=== PATIENT | male | born 1985 | race Caucasian/White ===

== ENCOUNTER 2017-03-15 11:24 | Day surgery (SDC) | payer OTHER ==
[2017-03-10 12:35] VITALS: BMI 46.0
[2017-03-15] MEDS ORDERED: MIDAZOLAM HCL 2 MG/2 ML SINGLE DOSE VIAL ONE ×4 (12:13→13:59)
[2017-03-15] MEDS ORDERED: DEXAMETHASONE SOD PHOSPHATE/PF 10 MG/ML SDV ONE (12:13)
[2017-03-15] MEDS ORDERED: oxyCODONE HCL 10 MG SUSTAINED ACTING TABLET PO STA (12:16)
--- NOTE | 2017-03-15 13:02 | HP ---
History & Physical Update - History History: No Change - Physical Physical: No Change - Assessment Assessment: No Change - Plan Plan: No Change
--- NOTE | 2017-03-15 13:03 | OP ---
Operative Note - Note: Operative Date: 03/15/17 Pre-Operative Diagnosis: L5/S1 spinal stenosis with radiculopathy Operation: L5/S1 bilateral laminectomy Post-Operative Diagnosis: Same as Pre-op Surgeon: Jack Boyer Intelligence Specialist: Wilfrido Conteh Anesthesiologist/HUMAN RESOURCES CLERK: Victor M Maria ([facility]) Anesthesia: Spinal Estimated Blood Loss (mls): 10 Fluid Volume Replaced (mls): 1,100 Operative Report Dictated: Yes
--- NOTE | 2017-03-15 13:04 | SURG ---
Surgery Lace Mender Note Lace Mender: Wilfrido Conteh PA-C Date of Service: 03/15/17 Diagnosis: L5/S1 spinal stenosis with radiculopathy Procedure: L5/S1 bilateral laminectomy I was present for the entirety of the operative procedure. For further detail, please refer to operative report. Visit type - Case Type Case Type: Scheduled Admission - New patient This patient is new to me today: Yes Date on this admission: 03/15/17
[2017-03-15] MEDS ORDERED: methylPREDNISolone ACET (DEPO) 40 MG/1 ML VIAL ONE (13:06)
[2017-03-15] MEDS ORDERED: THROMBIN (BOVINE) 5,000 UNIT VIAL TP ONE (13:06)
[2017-03-15] MEDS ORDERED: LIDOCAINE 1%/EPI 1:100000 (20 ML MULTI DOSE VIAL) ONE (13:07)
[2017-03-15] MEDS ORDERED: GUM MASTIC/STORAX/MSAL/ALCOHOL 1 DRP DROPSBTL MC ONE (13:07)
[2017-03-15] MEDS ORDERED: oxyCODONE HCL 5 MG TABLET PO PRN (13:49)
[2017-03-15] MEDS ORDERED: ONDANSETRON 4 MG/2 ML VIAL IVPUSH PRN (13:49)
[2017-03-15] MEDS ORDERED: LACTATED RINGERS SOLUTION 1,000 ML IV SCH (14:00)
[2017-03-15] MEDS ORDERED: oxyCODONE HCL 5 MG TABLET ONE (17:28)
[2017-03-15 18:24] VITALS: BP 140/77; PULSE 95; TEMP 98.1
--- NOTE | 2017-03-16 08:01 | OP ---
DATE OF OPERATION: 03/15/2017 PREOPERATIVE DIAGNOSIS: Spinal stenosis, L3-L4, L4-L5. POSTOPERATIVE DIAGNOSIS: Spinal stenosis, L3-L4, L4-L5. PROCEDURE PERFORMED: Laminectomy at L3-L4, L4-L5. SURGEON: Jack Boyer MD [employer] BAND DIRECTOR: ROGERIO Ruiz ESTIMATED BLOOD LOSS: 50 mL. INTRAVENOUS FLUID: Per Anesthesia. COMPLICATIONS: None. DISPOSITION: Patient brought to the PACU in stable condition. ANESTHESIA: Spinal/TLIP. INDICATIONS FOR SURGERY: The patient is a 31-year-old gentleman female who has been suffering from pain from his back down his leg. X-rays and MRI were completed which showed spinal stenosis at L3-L4 and L4-L5. He had gone through an exhaustive course of treatment for this which included medications, physical therapy, as well as injections. Unfortunately, his pain continued to persist despite all this. At this point, risks, benefits, and alternatives were discussed, and the patient consented to surgery. OPERATIVE NOTE: Patient was brought to the operating room by the Anesthesia staff. After appropriate patient identification was performed, spinal anesthesia was given devonte with TLIP. He was placed prone onto the Jose Luis frame with all areas of bony prominences well padded. At this time, 2 needles were placed into his back to jacky off the L3 and L5 segments. An x-ray was taken to confirm this was correct. The needle was removed, and 10 mL of lidocaine with epinephrine was injected into his back at this time. His back was prepped and draped in a sterile manner. At this point, a time-out was completed. An incision was made from the top of L3 down to the bottom of L5. Dissection was carried down to the fascia. The fascia was split open at this time. Appropriate retractor was then placed in. A spinal needle was placed onto the L3 lamina. An x-ray was taken to confirm this was correct at the L3-L4 level. The needle was removed, and the microscope was brought in. At this point, the interspinous ligament at L3-L4 and L4-L5 was removed. The spinous process at L4 was removed. A bur was used to remove the lamina. Complete decompression was performed such that by the end of the procedure, the L4 and L5 nerve roots appeared to be well decompressed. All bleeding was well controlled at this time. Steroids were placed over the nerve root. Floseal was placed over that. The fascia was closed with a No. 1 Vicryl suture. The subcutaneous tissues were closed with 2-0 Vicryl suture. Skin was closed with 3-0 Monocryl suture. Dermabond was applied. Steri-Strips were applied, and sterile dressings applied. Patient was placed supine on the OR bed, extubated in the OR, and brought to the PACU in stable condition. Angelina MORENO/[id number] MTDD
== END 2017-03-15 18:20 | disposition home or self-care (01) ==
LOC: FASU 11:24
PROVIDERS: ATTEND Orthopaedic Surgery Orthopaedic Surgery of the Spine
PROC: 01NB0ZZ Release Lumbar Nerve, Open Approach (ICD-10-PCS; principal; 2017-03-15 13:52)
DX: M48.061 Spinal stenosis, lumbar region without neurogenic claudication (principal)
CPT/HCPCS: 72100-TC; 94760

== ENCOUNTER 2017-04-04 12:15 | Inpatient (IN) | payer OTHER ==
[2017-04-04] MEDS ORDERED: ACETAMINOPHEN 325 MG TABLET (FP) PO PRN (12:42)
--- NOTE | 2017-04-04 13:09 | HP ---
CHIEF COMPLAINT: headaches PCP: Dr. Boyer HISTORY OF PRESENT ILLNESS: Pt with headaches for 5 days. He has had a laminectomy on 03/15/17 at [facility] with admitting physician Dr. boyer. Now transferred here with acute onset of headaches. Recent Travel: PAST MEDICAL HISTORY: HTN PAST SURGICAL HISTORY: laminectomy 03/15/17 Social History: Smoking:neg Alcohol:neg Drugs: marijuana Family History: Allergies No Known Allergies Allergy (Verified 03/10/17 12:15) HOME MEDICATIONS: Home Medications Medication Instructions Recorded Hydrocodone/Acetaminophen [Vicodin 1 each PO Q6H PRN #10 tablet MDD 4 03/15/17 5-300 mg Tablet] Lisinopril/Hydrochlorothiazide 1 each PO DAILY 03/15/17 [Lisinopril-Hctz 20-25 mg Tab] Tramadol HCl 50 mg PO Q6H #20 tablet MDD 4 03/15/17 REVIEW OF SYSTEMS CONSTITUTIONAL: Absent: fever, chills, diaphoresis, generalized weakness, malaise, loss of appetite, weight change CARDIOVASCULAR: Absent: chest pain, syncope, palpitations, irregular heart rate, lightheadedness , peripheral edema RESPIRATORY: Absent: cough, shortness of breath, dyspnea with exertion, orthopnea, wheezing, stridor, hemoptysis GASTROINTESTINAL: Absent: abdominal pain, abdominal distension, nausea, vomiting, diarrhea, constipation, melena, hematochezia GENITOURINARY: Absent: dysuria, frequency, urgency, hesitancy, hematuria, flank pain, genital pain MUSCULOSKELETAL: Absent: myalgia, arthralgia, joint swelling, back pain, neck pain, SKIN: Absent: rash, itching, pallor HEMATOLOGIC/IMMUNOLOGIC: Absent: easy bleeding, easy bruising, lymphadenopathy, frequent infections ENDOCRINE: Absent: unexplained weight gain, unexplained weight loss, heat intolerance, cold intolerance NEUROLOGIC: Absent: +headache, focal weakness or paresthesias, dizziness, unsteady gait, seizure, mental status changes, bladder or bowel incontinence PSYCHIATRIC: Absent: anxiety, depression, suicidal or homicidal ideation, hallucinations. PHYSICAL EXAMINATION GENERAL: Awake, alert, and fully oriented, in no acute distress. HEAD: Normal with no signs of trauma. LUNGS: Breath sounds equal, clear to auscultation bilaterally. No wheezes, and no crackles. No accessory muscle use. HEART: Regular rate and rhythm, normal S1 and S2 without murmur, rub or gallop. ABDOMEN: Soft, nontender, not distended, normoactive bowel sounds, no guarding, no rebound, no masses. No hepatomegaly or splenomegaly. MUSCULOSKELETAL: Normal range of motion at all joints. No bony deformities or tenderness. No CVA tenderness. UPPER EXTREMITIES: 2+ pulses, warm, well-perfused. No cyanosis. No clubbing. No peripheral edema. LOWER EXTREMITIES: 2+ pulses, warm, well-perfused. No calf tenderness. No peripheral edema. NEUROLOGICAL: Cranial nerves II-XII intact. Normal speech. Pt on bedrest with HOB flat due to ?spinal headache PSYCHIATRIC: Cooperative. Good eye contact. Appropriate mood and affect. SKIN: Warm, dry, normal turgor, no rashes or lesions noted, normal capillary refill. ASSESSMENT/PLAN: This 31 yr old male with c/o acute 5 day headache s/p laminectomy on 03/15/[address] [facility] to continue care from J[facility] Espinosa. Pt intially went to [facility] for headaches and after a few days of treatment pt contacted Dr. Boyer and he felt it would be best to transfer over care to [facility] and possible surgical intervention. He now presents via EMS with his family present Back pain -was taking vicoden at home but no relief from headache -no wound, no redness or erythema -no numbness, tingling or parathesia to LE Headache: -treat with fiorocet and tylenol -IVF -lie flat in bed HTN -continue meds as lisinopril and HCTZ as home meds. Problem List - Problem (1) Headache after spinal puncture Code(s): G97.1 - OTHER REACTION TO SPINAL AND LUMBAR PUNCTURE (2) Hypertension Code(s): I10 - ESSENTIAL (PRIMARY) HYPERTENSION Visit type - Emergency Visit Emergency Visit: Yes ED Registration Date: 04/04/17 Care time: The patient presented to the Emergency Department on the above date and was hospitalized for further evaluation of their emergent condition. - New Patient This patient is new to me today: Yes Date on this admission: 04/04/17 - Critical Care Critical Care patient: No
[2017-04-04 13:10] VITALS: BMI 46.7
[2017-04-04] MEDS ORDERED: HYDROCHLOROTHIAZIDE 25 MG TABLET (FP) PO ONE (13:13)
[2017-04-04] MEDS ORDERED: LISINOPRIL 20 MG TABLET (FP) PO ONE (13:13)
[2017-04-04] MEDS: SODIUM CHLORIDE 1,000 ML IV SCH (13:56)
[2017-04-04 14:18] LABS: HEMOGLOBIN 12.8 GM/dl (11.7-16.9); MCH 29.1 pg (25.7-33.7); MCHC 33.6 g/dl (32.0-35.9); MEAN CELL VOLUME 86.6 fl (80-96); MEAN PLT VOLUME 9.2 fl (7.5-11.1); PLATELET COUNT 239 K/MM3 (134-434); RDW 12.6 % (11.9-15.9); WHITE BLOOD COUNT 6.7 K/mm3 (4.0-10.8)
[2017-04-04 14:38] LABS: ANION GAP 7 (8-16); BLOOD UREA NITROGEN 7 mg/dl (7-18); CALCIUM 8.9 mg/dl (8.4-10.2); CHLORIDE 105 mmol/L (98-107); CO2 25 mmol/L (22-28); CREATININE 0.7 mg/dl (0.6-1.3); GLUCOSE,RANDOM 132 mg/dl (74-106); POTASSIUM 3.6 mmol/L (3.5-5.1); SODIUM 137 mmol/L (136-145)
[2017-04-04 14:41] LABS: ACTIVATED PTT 31.7 SECONDS (24.0-38.9)
[2017-04-04 14:45] LABS: INR 1.23 (0.82-1.09); PROTHROMBIN TIME (PATIENT) 13.7 SEC (10.2-13.0)
[2017-04-04 16:44] LABS: URINE APPEARANCE Clear; URINE BILIRUBIN Negative (NEGATIVE); URINE GLUCOSE (UA) Negative (NEGATIVE); URINE KETONE Negative (NEGATIVE); URINE LEUK ESTERASE Negative (NEGATIVE); URINE NITRITE Negative (NEGATIVE); URINE PROTEIN Negative (NEGATIVE)
[2017-04-04 16:48] LABS: URINE BLOOD Trace-intact (NEGATIVE); URINE COLOR YELLOW
[2017-04-04 16:53] LABS: AMORP URATES FEW /hpf (NONE SEEN); EPI CELLS FEW /HPF; URINE BACTERIA FEW /hpf (NEGATIVE)
[2017-04-04] MEDS: HEPARIN NA (PORCINE) 5,000 UNITS/ML 1ML VIAL SQ SCH (17:56)
[2017-04-04] MEDS: ACETAMINOPHEN/CAFFEINE/BUTALBITAL 1 TAB PO PRN (19:45)
[2017-04-04] MEDS: ONDANSETRON 4 MG/2 ML VIAL IVPUSH PRN (23:51)
[2017-04-05] MEDS: HEPARIN NA (PORCINE) 5,000 UNITS/ML 1ML VIAL SQ SCH ×2 (01:15→10:00)
[2017-04-05] MEDS ORDERED: METOCLOPRAMIDE HCL INJECTION 10 MG/2 ML VIAL IVPUSH ONE (02:33)
--- NOTE | 2017-04-05 06:25 | PN ---
Physical Exam: SUBJECTIVE: Patient seen and examined. Still has severe headaches and nausea despite Fioricet, Zofran, Reglan. No weakness, no incontinence. No fevers/ chills. OBJECTIVE: Vital Signs Period Temp Pulse Resp BP Sys/Cornelius Pulse Ox Last 24 Hr 98.1 F-99.4 F 58-77 18-20 120-159/66-83 98-99 GENERAL: The patient is awake, alert, and fully oriented, in no acute distress. HEAD: Normal with no signs of trauma. EYES: PERRL, extraocular movements intact, sclera anicteric, conjunctiva clear. No ptosis. ENT: Ears normal, nares patent, oropharynx clear without exudates, moist mucous membranes. NECK: Trachea midline, full range of motion, supple. LUNGS: Breath sounds equal, clear to auscultation bilaterally, no wheezes, no crackles, no accessory muscle use. HEART: Regular rate and rhythm, S1, S2 without murmur, rub or gallop. ABDOMEN: Soft, nontender, nondistended, normoactive bowel sounds, no guarding, no rebound, no hepatosplenomegaly, no masses. EXTREMITIES: 2+ pulses, warm, well-perfused, no edema. NEUROLOGICAL: Cranial nerves II through XII grossly intact. Normal speech, gait not observed. 5/5 upper and lower extremity strength bilaterally. PSYCH: Normal mood, normal affect. SKIN: Warm, dry, normal turgor, no rashes or lesions noted. Laboratory Results - last 24 hr 04/04/17 04/04/17 04/04/17 13:50 13:50 13:50 WBC 6.7 RBC 4.40 Hgb 12.8 Hct 38.0 MCV 86.6 MCH 29.1 MCHC 33.6 RDW 12.6 Plt Count 239 MPV 9.2 PT with INR 13.7 H INR 1.23 H PTT (Actin FS) 31.7 Sodium 137 Potassium 3.6 Chloride 105 Carbon Dioxide 25 Anion Gap 7 L BUN 7 Creatinine 0.7 Random Glucose 132 H Calcium 8.9 Urine Color Urine Appearance Urine pH Ur Specific [place] Urine Protein Urine Glucose (UA) Urine Ketones Urine Blood Urine Nitrite Urine Bilirubin Urine Urobilinogen Ur Leukocyte Esterase Urine RBC Urine WBC Ur Epithelial Cells Amorphous Urates Urine Bacteria Blood Type Antibody Screen 04/04/17 04/04/17 04/04/17 13:50 13:58 16:35 WBC RBC Hgb Hct MCV MCH MCHC RDW Plt Count MPV PT with INR INR PTT (Actin FS) Sodium Potassium Chloride Carbon Dioxide Anion Gap BUN Creatinine Random Glucose Calcium Urine Color Yellow Urine Appearance Clear Urine pH 5.0 Ur Specific [place] 1.015 Urine Protein Negative Urine Glucose (UA) Negative Urine Ketones Negative Urine Blood Trace-intact H Urine Nitrite Negative Urine Bilirubin Negative Urine Urobilinogen 1.0 Ur Leukocyte Esterase Negative Urine RBC 5-10 Urine WBC 2-5 Ur Epithelial Cells Few Amorphous Urates Few Urine Bacteria Few Blood Type A POSITIVE A POSITIVE Antibody Screen Negative Active Medications Generic Name Dose Route Start Last Admin Trade Name Freq PRN Reason Stop Dose Admin Acetaminophen 650 mg 04/04/17 12:42 Tylenol - PO Q4H PRN PAIN Acetaminophen/Butalbital/Caffeine 1 tablet 04/04/17 13:12 04/04/17 19:45 Fioricet - PO 1 tablet Q6H PRN Administration HEADACHE Heparin Sodium (Porcine) 5,000 unit 04/04/17 18:00 04/05/17 01:15 Heparin - SQ Not Given Q8H-IV CHACHA Sodium Chloride 1,000 mls @ 100 mls/hr 04/04/17 12:45 04/04/17 13:56 Normal Saline - IV 100 mls/hr ASDIR CHACHA Administration Ondansetron HCl 4 mg 04/04/17 23:44 04/04/17 23:51 Zofran Injection IVPUSH 4 mg Q6H PRN Administration NAUSEA ASSESSMENT/PLAN: 31 year old male POD #21 s/p lumbar laminectomy with intractable headache and vomiting, likely secondary to dural tear. 1. Headache -Persistent despite Fioricet, Zofran, Reglan -Trial of Ofirmev 1g, Zofran 8mg IVPB now -For OR today, NPO, hold heparin 2. HTN -Continue home Lisinopril, HCTZ DISPO: Requires inpatient services. Visit type - Emergency Visit Emergency Visit: Yes ED Registration Date: 04/04/17 Care time: The patient presented to the Emergency Department on the above date and was hospitalized for further evaluation of their emergent condition. - New Patient This patient is new to me today: Yes Date on this admission: 04/05/17 - Critical Care Critical Care patient: No
[2017-04-05] MEDS ORDERED: ACETAMINOPHEN 1000 MG/100 ML VIAL (NON FORMULARY) IVPB ONE (06:26)
[2017-04-05] MEDS ORDERED: ONDANSETRON 4 MG/2 ML VIAL IVPB ONE (06:27)
[2017-04-05] MEDS: LISINOPRIL 20 MG TABLET (FP) PO SCH (08:24)
[2017-04-05] MEDS: HYDROCHLOROTHIAZIDE 25 MG TABLET (FP) PO SCH (08:24)
[2017-04-05 09:16] LABS: HEMATOCRIT 36.3 % (35.4-49); HEMOGLOBIN 12.5 GM/dl (11.7-16.9); MCH 29.9 pg (25.7-33.7); MCHC 34.5 g/dl (32.0-35.9); MEAN CELL VOLUME 86.8 fl (80-96); MEAN PLT VOLUME 9.8 fl (7.5-11.1); PLATELET COUNT 228 K/MM3 (134-434); RBC 4.19 M/mm3 (4.00-5.60); RDW 12.1 % (11.9-15.9); WHITE BLOOD COUNT 8.1 K/mm3 (4.0-10.8)
[2017-04-05] MEDS ORDERED: LISINOPRIL 10 MG TABLET (FP) PO SCH (10:00)
[2017-04-05 10:11] LABS: ANION GAP 10 (8-16); BLOOD UREA NITROGEN 6 mg/dl (7-18); CALCIUM 8.9 mg/dl (8.4-10.2); CHLORIDE 102 mmol/L (98-107); CO2 26 mmol/L (22-28); CREATININE 0.8 mg/dl (0.6-1.3); GLUCOSE,RANDOM 101 mg/dl (74-106); POTASSIUM 3.7 mmol/L (3.5-5.1); SODIUM 138 mmol/L (136-145)
[2017-04-05] MEDS: ACETAMINOPHEN/CAFFEINE/BUTALBITAL 1 TAB PO PRN (11:55)
[2017-04-05] MEDS: ONDANSETRON 4 MG/2 ML VIAL IVPUSH PRN (11:56)
[2017-04-05] MEDS ORDERED: LIDOCAINE 1%/EPI 1:100000 (20 ML MULTI DOSE VIAL) ONE (13:55)
[2017-04-05] MEDS ORDERED: THROMBIN (BOVINE) 5,000 UNIT VIAL TP ONE (13:55)
[2017-04-05] MEDS ORDERED: methylPREDNISolone ACET (DEPO) 40 MG/1 ML VIAL ONE (13:55)
[2017-04-05] MEDS ORDERED: ROCURONIUM BROMIDE 50 MG/5 ML VIAL ONE (14:44)
[2017-04-05] MEDS ORDERED: SUCCINYLCHOLINE CHLORIDE 200 MG/10 ML VIAL ONE (14:44)
[2017-04-05] MEDS ORDERED: PROPOFOL 20 ML ONE ×2 (14:44)
[2017-04-05] MEDS ORDERED: fentaNYL CITRATE 250 MCG/5 ML VIAL ONE (14:44)
[2017-04-05] MEDS ORDERED: MIDAZOLAM HCL 2 MG/2 ML SINGLE DOSE VIAL ONE (14:45)
[2017-04-05] MEDS ORDERED: ONDANSETRON 4 MG/2 ML VIAL ONE (16:31)
[2017-04-05] MEDS ORDERED: ceFAZolin SODIUM 1 GM VIAL ONE (16:31)
[2017-04-05] MEDS ORDERED: DEXAMETHASONE SOD PHOSPHATE 4 MG/1 ML VIAL ONE (16:31)
[2017-04-05] MEDS ORDERED: HYDROmorphone HCL/PF 1 MG/ML VIAL (FOR PYXIS CHARGING ONLY) ONE ×2 (16:32→16:58)
[2017-04-05] MEDS ORDERED: SODIUM CHLORIDE 1,000 ML IV SCH (17:25)
[2017-04-05] MEDS ORDERED: oxyCODONE HCL 5 MG TABLET PO PRN ×3 (17:27→17:32)
[2017-04-05] MEDS ORDERED: BUPIVACAINE HCL/PF 0.25% (2.5MG/ML) 10 ML VIAL IJ ONE (17:29)
[2017-04-05] MEDS ORDERED: CEFAZOLIN 1 GM/D5W 1 GM/50 ML BAG IVPB SCH (17:30)
[2017-04-05] MEDS ORDERED: HYDROmorphone HCL CARPU-JECT 2 MG/1 ML DISP.SYRIN IVPUSH PRN (17:32)
[2017-04-05] MEDS ORDERED: ONDANSETRON 4 MG/2 ML VIAL IVPUSH PRN (17:32)
[2017-04-05] MEDS ORDERED: PROMETHAZINE HCL 25 MG/1 ML VIAL IVPB PRN (17:32)
--- NOTE | 2017-04-05 17:34 | OP ---
Operative Note - Note: Operative Date: 04/05/17 Pre-Operative Diagnosis: dural tear Operation: wound exploration, repair of dural tear with duragen patch/duraseal Surgeon: Jack Boyer Greens Tier: Shy Hope Anesthesiologist/[employer]CHO[employer] COMBINATION TEACHER: Martha Dominguez Anesthesia: General Estimated Blood Loss (mls): 40 Fluid Volume Replaced (mls): 1,000 Operative Report Dictated: Yes
[2017-04-05] MEDS: DOCUSATE SODIUM 100 MG CAPSULE (FP) PO SCH (22:21)
[2017-04-05] MEDS: CEFAZOLIN 1 GM/D5W 1 GM/50 ML BAG IVPB SCH (22:34)
[2017-04-06] MEDS: HEPARIN NA (PORCINE) 5,000 UNITS/ML 1ML VIAL SQ SCH ×2 (02:04→07:42)
[2017-04-06] MEDS: CEFAZOLIN 1 GM/D5W 1 GM/50 ML BAG IVPB SCH ×2 (06:11→15:33)
[2017-04-06] MEDS: DOCUSATE SODIUM 100 MG CAPSULE (FP) PO SCH ×3 (06:11→21:34)
[2017-04-06] MEDS: oxyCODONE HCL 5 MG TABLET PO PRN ×3 (06:20→21:35)
[2017-04-06] MEDS: SODIUM CHLORIDE 1,000 ML IV SCH (07:42)
[2017-04-06] MEDS ORDERED: CYCLOBENZAPRINE HCL 5 MG TABLET PO PRN (07:47)
--- NOTE | 2017-04-06 07:49 | OP ---
DATE OF OPERATION: 04/05/2017 PREOPERATIVE DIAGNOSIS: Headaches and dural tear. POSTOPERATIVE DIAGNOSIS: Headaches and dural tear. PROCEDURE PERFORMED: Exploration of wound, repair of dural tear. SURGEON: Jack Boyer MD LAMINATION TECHNICIAN: ROGERIO Estrada ESTIMATED BLOOD LOSS: 50 mL. INTRAVENOUS FLUIDS: Per Anesthesia. ANESTHESIA: General. COMPLICATIONS: There were none. DISPOSITION: Patient brought to PACU in stable condition. INDICATION FOR SURGERY: The patient is a 31-year-old gentleman who was admitted who had . Two weeks after surgery he began to have headaches. He was admitted to an outside hospital. At the outside hospital an MRI was done which noted that he had a collection of fluid. Patient was noted to have headaches, and a provisional diagnosis of dural tear was made. Patient was transferred to [facility]. I evaluated the patient. Patient noted that when he stood up he began to have headaches. He denied any fevers. A new MRI was ordered, which confirmed that he had a collection of fluid. I had a lengthy discussion with the patient regarding this. We discussed the fact that he has fluid collection. It is unclear why he began to have symptoms 2 weeks after his surgery. I said the best course of treatment at this point is to do a direct exploration, determine if there is a dural tear, and repair it as possible. The patient understood the risks and benefits and alternatives and consented to his surgery. OPERATIVE NOTE: The patient was brought to the operating room by anesthesia staff. After appropriate patient identification was performed, general anesthesia was given. Patient was placed prone onto the Jose Luis frame with all areas of bony prominences well padded. His back warm, pink, and dry in a sterile manner. At this point a timeout was completed. His previous incision was opened up. At this point clear fluid was noted and was irrigated out. Multiple passes were made down to the dysuria and irrigation was noted. Microscope was brought in. On the lateral aspect of his dura close to the anterior part of the dura, a dural tear was noted. At that moment I decided that putting a suture in would have been too difficult. We made a decision to place a DuraGen patch over the dural tear as well as seal with DuraSeal. After doing this, multiple Valsalva maneuvers noted that there was no leakage. A tight fascial closure was done. Vicryl 2-0 was used to close the subcutaneous tissue. Skin was closed with 3-0 Monocryl sutures. Dermabond was applied and Steri-Strips were applied. A sterile dressing was applied. Patient was placed supine on the or bed, extubated in the OR and brought to the PACU in stable condition. Angelina MORENO/[id number]
[2017-04-06] MEDS ORDERED: SODIUM CHLORIDE 1,000 ML IV SCH (07:51)
[2017-04-06] MEDS ORDERED: CYCLOBENZAPRINE HCL 10 MG TABLET (FP) PO PRN (07:57)
--- NOTE | 2017-04-06 08:11 | SURG ---
Surgery Medical I D Sales Note Medical I D Sales: Shy Hope PA-C Date of Service: 04/05/17 Diagnosis: dural tear Procedure: wound exploration, repair of dural tear with duragen patch/duraseal I was present for the entirety of the operative procedure. For further detail, please refer to operative report. Visit type - Case Type Case Type: Scheduled Admission - Emergency Emergency Visit: No - New patient This patient is new to me today: Yes Date on this admission: 04/05/17
--- NOTE | 2017-04-06 08:32 | PN ---
Progress Note (short form) - Note Progress Note: PT states that his headache is a 1 to 2, he has been on bed rest with sitting upright to urinate. His headache hasn't increased with this activity. Today, I assisted him in sitting on the edge of the bed and he felt fine. Vital Signs Period Temp Pulse Resp BP Sys/Cornelius Pulse Ox Last 24 Hr 97.6 F-98.8 F 56-86 14-19 124-157/55-77 97-100 GEN: A&0x3, NAD Back: dressing c/d/i Neuro: dorsi/plantar flexion EHL 5/5 b/l. Fiberglass Product Tester strength equal b/l LE: no calf tenderness or swelling noted, b/l Scds in place and working CBC, BMP 04/05/17 07:00 04/05/17 07:00 A/P: 31 yo male s/p Laminectomy L3-5 now s/p wound exploration and repair of dural tear with durgen patch/duraseal Advanced diet this am and may discontinue IV fliuds later today Added flerxil for pain relief, when pain better controlled plan for oob and ambulate with PT/nursing staff Continue to monitor headache symptoms when oob/ambulating
[2017-04-06 08:52] LABS: ALBUMIN 3.3 g/dl (3.5-5.0); ALK PHOS 50 U/L (32-92); ANION GAP 7 (8-16); BASO % 0.2 % (0-2.0); BILIRUBIN,TOTAL 0.7 mg/dl (0.2-1.0); BLOOD UREA NITROGEN 8 mg/dl (7-18); CALCIUM 8.6 mg/dl (8.4-10.2); CHLORIDE 100 mmol/L (98-107); CO2 27 mmol/L (22-28); CREATININE 0.9 mg/dl (0.6-1.3); EOS % 0.4 % (0-4.5); GLUCOSE,RANDOM 93 mg/dl (74-106); HEMATOCRIT 36.2 % (35.4-49); HEMOGLOBIN 12.3 GM/dl (11.7-16.9); LYMPH % 17.6 % (8-40); MCH 29.1 pg (25.7-33.7); MCHC 34.1 g/dl (32.0-35.9); MEAN CELL VOLUME 85.1 fl (80-96); MEAN PLT VOLUME 9.4 fl (7.5-11.1); MONO % 5.7 % (3.8-10.2); NEUT % 76.1 % (42.8-82.8); POTASSIUM 3.7 mmol/L (3.5-5.1); RBC 4.25 M/mm3 (4.00-5.60); RDW 12.4 % (11.9-15.9); SGOT/AST 19 U/L (10-42); SGPT/ALT 34 U/L (10-40); SODIUM 134 mmol/L (136-145); TOT PROT 5.8 g/dl (6.4-8.3); WHITE BLOOD COUNT 9.3 K/mm3 (4.0-10.8)
[2017-04-06] MEDS: HYDROCHLOROTHIAZIDE 25 MG TABLET (FP) PO SCH (09:38)
[2017-04-06] MEDS: LISINOPRIL 20 MG TABLET (FP) PO SCH (09:38)
[2017-04-06 09:39] LABS: PLATELET COUNT 238 K/MM3 (134-434)
--- NOTE | 2017-04-06 09:42 | PN ---
Physical Exam: SUBJECTIVE: Patient seen and examined, patient is sitting up in bed, reports headache is 4/10 upon position changes, does report headache is much improved. OBJECTIVE: patient is a 31 year old male s/p lumbar laminectomy (pod #22) admitted from the emergency department for dural tear repair, 04/05/17. Vital Signs Period Temp Pulse Resp BP Sys/Cornelius Pulse Ox Last 24 Hr 97.6 F-98.8 F 56-89 14-19 124-157/55-77 97-100 GENERAL: The patient is awake, alert, and fully oriented, in no acute distress. HEAD: Normal with no signs of trauma. EYES: PERRL, extraocular movements intact, sclera anicteric, conjunctiva clear. No ptosis. ENT: Ears normal, nares patent, oropharynx clear without exudates, moist mucous membranes. NECK: Trachea midline, full range of motion, supple. LUNGS: Breath sounds equal, clear to auscultation bilaterally, no wheezes, no crackles, no accessory muscle use. HEART: Regular rate and rhythm, S1, S2 without murmur, rub or gallop. ABDOMEN: Soft, nontender, nondistended, normoactive bowel sounds, no guarding, no rebound, no hepatosplenomegaly, no masses. EXTREMITIES: 2+ pulses, warm, well-perfused, no edema. NEUROLOGICAL: Cranial nerves II through XII grossly intact. Normal speech, gait not observed. PSYCH: Normal mood, normal affect. SKIN: sacral surgical site, dressing clean and dry and intact. Warm, dry, normal turgor, no rashes or lesions noted Laboratory Results - last 24 hr 04/05/17 04/06/17 04/06/17 07:00 08:00 08:00 WBC 9.3 RBC 4.25 Hgb 12.3 Hct 36.2 MCV 85.1 MCH 29.1 MCHC 34.1 RDW 12.4 Plt Count 238 MPV 9.4 Neutrophils % 76.1 Lymphocytes % 17.6 Monocytes % 5.7 Eosinophils % 0.4 Basophils % 0.2 Sodium 138 134 L Potassium 3.7 3.7 Chloride 102 100 Carbon Dioxide 26 27 Anion Gap 10 7 L BUN 6 L 8 D Creatinine 0.8 0.9 Creat Clearance w eGFR > 60 Random Glucose 101 D 93 Calcium 8.9 8.6 Total Bilirubin 0.7 AST 19 ALT 34 Alkaline Phosphatase 50 Total Protein 5.8 L Albumin 3.3 L Active Medications Generic Name Dose Route Start Last Admin Trade Name Freq PRN Reason Stop Dose Admin Acetaminophen 650 mg 04/04/17 12:42 04/06/17 03:23 Tylenol - PO 650 mg Q4H PRN Administration PAIN Acetaminophen/Butalbital/Caffeine 1 tablet 04/04/17 13:12 04/05/17 11:55 Fioricet - PO 1 tablet Q6H PRN Administration HEADACHE Cyclobenzaprine HCl 10 mg 04/06/17 07:57 04/06/17 08:09 Flexeril - PO 10 mg BID PRN Administration BACK PAIN Docusate Sodium 100 mg 04/05/17 22:00 04/06/17 06:11 Colace - PO 100 mg TID CHACHA Administration Hydrochlorothiazide 25 mg 04/05/17 08:30 04/05/17 08:24 Hctz - PO 25 mg DAILY CHACHA Administration Cefazolin Sodium 1 gm in 50 mls @ 100 mls/hr 04/05/17 23:00 04/06/17 06:11 Ancef 1 Gm Premixed Ivpb - IVPB 04/06/17 22:59 100 mls/hr Q8H CHACHA Administration Sodium Chloride 1,000 mls @ 75 mls/hr 04/06/17 07:51 Normal Saline - IV 04/06/17 12:00 ASDIR CHACHA Lisinopril 20 mg 04/05/17 08:30 04/05/17 08:24 Prinivil PO 20 mg DAILY CHACHA Administration Ondansetron HCl 4 mg 04/04/17 23:44 04/05/17 11:56 Zofran Injection IVPUSH 4 mg Q6H PRN Administration NAUSEA Oxycodone HCl 5 mg 04/05/17 17:27 04/05/17 22:34 Roxicodone - PO 5 mg Q4H PRN Administration PAIN LEVEL 1-5 Oxycodone HCl 10 mg 04/05/17 17:27 04/06/17 06:20 Roxicodone - PO 10 mg Q4H PRN Administration PAIN LEVEL 6-10 IMAGING lumar spine mri: s/p l4 laminectomy with large fluid collection, posteriorly extending form the posterior epidural space. ASSESSMENT/PLAN: 1. MS S/p dural tear repair, POD #1 - physical therapy evaluation - continue prn pain medication - Dr Boyer following 2. cardiovascular HTN -Continue home Lisinopril, HCTZ DISPO: Requires inpatient services.
--- NOTE | 2017-04-06 10:52 | PN ---
Progress Note, Physician Chief Complaint: s/p dural tear repair under general anesthesia. History of Present Illness: post op day one - Current Medication List Current Medications: Active Medications Acetaminophen (Tylenol -) 650 mg PO Q4H PRN PRN Reason: PAIN Last Admin: 04/06/17 03:23 Dose: 650 mg Acetaminophen/Butalbital/Caffeine (Fioricet -) 1 tablet PO Q6H PRN PRN Reason: HEADACHE Last Admin: 04/05/17 11:55 Dose: 1 tablet Cyclobenzaprine HCl (Flexeril -) 10 mg PO BID PRN PRN Reason: BACK PAIN Last Admin: 04/06/17 08:09 Dose: 10 mg Docusate Sodium (Colace -) 100 mg PO TID [facility] Last Admin: 04/06/17 06:11 Dose: 100 mg Hydrochlorothiazide (Hctz -) 25 mg PO DAILY [facility] Last Admin: 04/06/17 09:38 Dose: 25 mg Cefazolin Sodium (Ancef 1 Gm Premixed Ivpb -) 1 gm in 50 mls @ 100 mls/hr IVPB Q8H [facility] Stop: 04/06/17 22:59 Last Admin: 04/06/17 06:11 Dose: 100 mls/hr Sodium Chloride (Normal Saline -) 1,000 mls @ 75 mls/hr IV ASDIR [facility] Stop: 04/06/17 12:00 Last Admin: 04/06/17 08:09 Dose: 75 mls/hr Lisinopril (Prinivil) 20 mg PO DAILY [facility] Last Admin: 04/06/17 09:38 Dose: 20 mg Ondansetron HCl (Zofran Injection) 4 mg IVPUSH Q6H PRN PRN Reason: NAUSEA Last Admin: 04/05/17 11:56 Dose: 4 mg Oxycodone HCl (Roxicodone -) 5 mg PO Q4H PRN PRN Reason: PAIN LEVEL 1-5 Last Admin: 04/05/17 22:34 Dose: 5 mg Oxycodone HCl (Roxicodone -) 10 mg PO Q4H PRN PRN Reason: PAIN LEVEL 6-10 Last Admin: 04/06/17 06:20 Dose: 10 mg - Objective Vital Signs: Vital Signs Temperature 98.8 F 04/06/17 09:35 Pulse Rate 89 04/06/17 09:35 Respiratory Rate 18 02/06/18 09:35 Blood Pressure 125/59 04/06/17 09:35 O2 Sat by Pulse Oximetry (%) 100 04/06/17 06:16 Constitutional: Yes: Well Nourished Cardiovascular: Yes: WNL Respiratory: Yes: WNL Gastrointestinal: Yes: WNL Labs: CBC, BMP 04/06/17 08:00 04/06/17 08:00 INR, PTT INR 1.23 (0.82-1.09) H 04/04/17 13:50 Assessment/Plan No adverse anesthetic reaction, no nausea or vomiting, minor throat pain no intervention necessary at this time. dept of anesthesia will sign off care.
[2017-04-06 22:44] VITALS: TEMP 98.6
[2017-04-07] MEDS: DOCUSATE SODIUM 100 MG CAPSULE (FP) PO SCH (06:23)
[2017-04-07 06:50] VITALS: BP 162/80; PULSE 72
[2017-04-07] MEDS: LISINOPRIL 20 MG TABLET (FP) PO SCH (09:24)
[2017-04-07] MEDS: HYDROCHLOROTHIAZIDE 25 MG TABLET (FP) PO SCH (09:24)
--- NOTE | 2017-04-07 09:42 | PN ---
Progress Note (short form) - Note Progress Note: Pt with no increase in headaches, at a 1 out of 10. OOB and ambulating yesterday on his own and with physical therapy. Vital Signs Period Temp Pulse Resp BP Sys/Cornelius Pulse Ox Last 24 Hr 98.6 F-98.8 F 65-87 18-20 120-162/57-81 97-99 Back: Dressing changed. Inc c/d/i with steristrips minimal clear fluid on dressing in 3 places size of a dime. No fullness or erythema. CBC, BMP 04/06/17 08:00 04/06/17 08:00 A/p: 31 yo male repair of dural tear with duragenpatch/duraseal after laminectomy Headache symptoms improved overall and remains stable D/w Dr. Boyer and plan for discharge to home today with follow-up this wednesday in the office Pain medications viodin/flexeril to go home Stool softners as needed for constipation OOB and ambulate
--- NOTE | 2017-04-07 12:21 | DS ---
Physical Exam: SUBJECTIVE: Patient seen and examined, reports feeling well ambulatory at bedside, denies any headache. OBJECTIVE: Pt with headaches for 5 days. He has had a laminectomy on 03/15/17 at [facility] with admitting physician Dr. boyer. Now transferred here with acute onset of headaches. Vital Signs Period Temp Pulse Resp BP Sys/Cornelius Pulse Ox Last 24 Hr 98.6 F-98.8 F 65-87 18-20 120-162/57-81 97-99 PHYSICAL EXAM . GENERAL: The patient is awake, alert, and fully oriented, in no acute distress. HEAD: Normal with no signs of trauma. EYES: PERRL, extraocular movements intact, sclera anicteric, conjunctiva clear. No ptosis. ENT: Ears normal, nares patent, oropharynx clear without exudates, moist mucous membranes. NECK: Trachea midline, full range of motion, supple. LUNGS: Breath sounds equal, clear to auscultation bilaterally, no wheezes, no crackles, no accessory muscle use. HEART: Regular rate and rhythm, S1, S2 without murmur, rub or gallop. ABDOMEN: Soft, nontender, nondistended, normoactive bowel sounds, no guarding, no rebound, no hepatosplenomegaly, no masses. EXTREMITIES: 2+ pulses, warm, well-perfused, no edema. NEUROLOGICAL: Cranial nerves II through XII grossly intact. Normal speech, gait not observed. PSYCH: Normal mood, normal affect. SKIN: sacral surgical site, dressing clean and dry and intact. Warm, dry, normal turgor, no rashes or lesions noted LABS CBC WBC 9.3 K/mm3 (4.0-10.8) 04/06/17 08:00 RBC 4.25 M/mm3 (4.00-5.60) 04/06/17 08:00 Hgb 12.3 GM/dl (11.7-16.9) 04/06/17 08:00 Hct 36.2 % (35.4-49) 04/06/17 08:00 MCV 85.1 fl (80-96) 04/06/17 08:00 MCH 29.1 pg (25.7-33.7) 04/06/17 08:00 MCHC 34.1 g/dl (32.0-35.9) 04/06/17 08:00 RDW 12.4 % (11.9-15.9) 04/06/17 08:00 Plt Count 238 K/MM3 (134-434) 04/06/17 08:00 MPV 9.4 fl (7.5-11.1) 04/06/17 08:00 Neutrophils % 76.1 % (42.8-82.8) 04/06/17 08:00 Lymphocytes % 17.6 % (8-40) 04/06/17 08:00 Monocytes % 5.7 % (3.8-10.2) 04/06/17 08:00 Eosinophils % 0.4 % (0-4.5) 04/06/17 08:00 Basophils % 0.2 % (0-2.0) 04/06/17 08:00 CMP Sodium 134 mmol/L (136-145) L 04/06/17 08:00 Potassium 3.7 mmol/L (3.5-5.1) 04/06/17 08:00 Chloride 100 mmol/L (98-107) 04/06/17 08:00 Carbon Dioxide 27 mmol/L (22-28) 04/06/17 08:00 Anion Gap 7 (8-16) L 04/06/17 08:00 BUN 8 mg/dl (7-18) D 04/06/17 08:00 Creatinine 0.9 mg/dl (0.6-1.3) 04/06/17 08:00 Creat Clearance w eGFR > 60 (>60) 04/06/17 08:00 Random Glucose 93 mg/dl (74-106) 04/06/17 08:00 Calcium 8.6 mg/dl (8.4-10.2) 04/06/17 08:00 Total Bilirubin 0.7 mg/dl (0.2-1.0) 04/06/17 08:00 AST 19 U/L (10-42) 04/06/17 08:00 ALT 34 U/L (10-40) 04/06/17 08:00 Alkaline Phosphatase 50 U/L (32-92) 04/06/17 08:00 Total Protein 5.8 g/dl (6.4-8.3) L 04/06/17 08:00 Albumin 3.3 g/dl (3.5-5.0) L 04/06/17 08:00 IMAGING lumar spine mri: s/p l4 laminectomy with large fluid collection, posteriorly extending form the posterior epidural space. HOSPITAL COURSE: S/p dural tear repair, POD #2, pain managed with narcotic and non narcotic medication, physical therapy evaluation completed. patient has a past medical history of hypertensin, lisiniopril and hctz continued throughout admission, blood pressure remained at goal. Date of Admission:04/04/17 Date of Discharge: 04/07/17 Minutes to complete discharge: 45 Discharge Summary Reason For Visit: DURAL TEAR Current Active Problems Headache after spinal puncture (Acute) Hypertension (Acute) Condition: Good - Instructions Diet, Activity, Other Instructions: Regular diet as tolerated. No bending and or twisting at the waist. No lifting greater than 5 pounds. Follow-up with your surgeon in two weeks. Keep area clean and dry. May remove dressing in two (2) days and replace with clean gauze and occlusive dressing such as a tegaderm. NO BATHS. You may shower starting two (2) days after your surgery. When showering, leave the occlusive(plastic) dressing in place and change if it appears wet. Avoid direct water stream onto your incision. If you develop fever, drainage from your incision please call your surgeon. Follow-up Referred to following clinics/specialists for follow-up care: Jack Boyer MD [address], [place] [address] [phone] Boyer on Wednesday, please call to schedule an appointment Rx Written Rx Dispensed Drug Quantity Days Supply Prescriber Name 03/15/2017 03/15/2017 hydrocodone-acetaminophen 5-300 mg tablet 10 3 Wilfrido Conteh 03/15/2017 03/15/2017 tramadol hcl 50 mg tablet 20 5 Wilfrido Conteh Disposition: HOME - Home Medications Comprehensive Discharge Medication List: Ambulatory Orders Hydrocodone/Acetaminophen [Vicodin 5-300 mg Tablet] 1 each PO Q6H PRN #10 tablet MDD 4 03/15/17 Lisinopril/Hydrochlorothiazide [Lisinopril-Hctz 20-25 mg Tab] 1 each PO DAILY Cyclobenzaprine HCl [Flexeril 10 mg] 10 mg PO BID PRN #10 tablet 02/07/18 Docusate Sodium [Colace -] 100 mg PO TID PRN #21 capsule 04/07/17 Hydrocodone Bit/Acetaminophen [Vicodin 5/300 mg -] 1 tab PO Q6H PRN #20 tab MDD 4 04/07/17 This patient is new to me today: No Emergency Visit: Yes ED Registration Date: 04/04/17 Care time: The patient presented to the Emergency Department on the above date and was hospitalized for further evaluation of their emergent condition. Critical Care patient: No - Discharge Referral Referred to [facility] No
[2017-04-07] MEDS: oxyCODONE HCL 5 MG TABLET PO PRN (12:35)
== END 2017-04-07 13:00 | disposition home or self-care (01) | DRG 26 ==
LOC: FM/S 12:15
PROVIDERS: ADMIT Orthopaedic Surgery Orthopaedic Surgery of the Spine; ATTEND Orthopaedic Surgery Orthopaedic Surgery of the Spine
PROC: 00U20JZ Supplement Dura Mater with Synthetic Substitute, Open Approach (ICD-10-PCS; 2017-04-05)
PROC: 00QT0ZZ Repair Spinal Meninges, Open Approach (ICD-10-PCS; principal; 2017-04-05 15:35)
DX: G97.1 Other reaction to spinal and lumbar puncture (principal); G96.11 Dural tear; Z68.42 Body mass index [BMI] 45.0-49.9, adult; R51 Headache; I10 Essential (primary) hypertension; M54.89 Other dorsalgia; E66.01 Morbid (severe) obesity due to excess calories
CPT/HCPCS: 36415; 72148-TC; 80048; 80053; 81003; 81015; 85025; 85027; 85610; 85730; 86850; 86900; 86901; 97116-GP; 97162-GP; J1644